=== PATIENT | male | born 1995 | race Caucasian/White ===

== ENCOUNTER 2017-03-08 10:31 | Emergency (ER) | payer OTHER ==
[2017-03-08] MEDS ORDERED: Ibuprofen TAB* 400 MG PO ONE (11:10)
--- NOTE | 2017-03-08 11:30 | ED ---
Lower Extremity - HPI Summary HPI Summary: Patient was hiking barefoot last night, which he does regularly, when he slipped and thinks his right fourth toe was caught in a root. He knew the toe was injured but was able to walk home. At home he cleaned the wound, applied Neosporin and wrapped it in tight clean gauze. This morning he went to [facility] where he was told he might lose the toe and need an amputation, and was referred to the ED. He denies a lot of pain, no fever, chills or drainage. His tetanus is up to date and he has not taken anything for pain. - History of Current Complaint Chief Complaint: EDExtremityLower Stated Complaint: TOE LAC RT FOOT Time Seen by Provider: 03/08/17 10:37 Hx Obtained From: Patient Mechanism Of Injury: Twisted Onset of Pain: Immediate Onset/Duration: Hours Severity Initially: Moderate Severity Currently: Moderate Pain Intensity: 6 Timing: Constant, Lasting Hours Location: Is Discrete @ - right 4th toe Character Of Pain: Aching Associated Signs And Symptoms: Positive: Bruising - mild Aggravating Factor(s): Movement Alleviating Factor(s): Rest Able to Bear Weight: Yes - Allergies/Home Medications Allergies/Adverse Reactions: Allergies Allergy/AdvReac Type Severity Reaction Status Date / Time No Known Allergies Allergy Verified 03/08/17 11:22 PMH/Surg Hx/FS Hx/Imm Hx Previously Healthy: Yes Infectious Disease History: No Infectious Disease History: Denies: Traveled Outside the [place] in Last 30 Days - Family History Known Family History: Positive: None - Social History Occupation: Employed Part-time Lives: With Family Alcohol Use: None Substance Use Type: Reports: None Smoking Status (MU): Never Smoked Tobacco Review of Systems Positive: Myalgia - right 4th toe skin avulsion Negative: Paresthesia, Numbness All Other Systems Reviewed And Are Negative: Yes Physical Exam Triage Information Reviewed: Yes Vital Signs On Initial Exam: Initial Vitals Temp Pulse Resp BP Pulse Ox 98.1 F 71 16 127/83 98 03/08/17 10:37 03/08/17 10:37 03/08/17 10:37 03/08/17 10:37 03/08/17 10:37 Vital Signs Reviewed: Yes Appearance: Positive: Well-Appearing, No Pain Distress, Thin Skin: Positive: Warm, Skin Color Reflects Adequate Perfusion, Dry, Tender - right 4th toe 1 cm skin avulsion to the distal pulp, Soft Head/Face: Positive: Normal Head/Face Inspection Eyes: Positive: EOMI, KELSIE, Conjunctiva Clear ENT: Positive: Hearing grossly normal Respiratory/Lung Sounds: Positive: Breath Sounds Present Cardiovascular: Positive: RRR Musculoskeletal: Positive: Limited @ - right 4th toe movement limited by pain, Pain @ - mildly TTP right 4th toe Neurological: Positive: Sensory/Motor Intact, Alert, Oriented to Person Place, Time, NV Bundle Intact Distally, Normal Gait Psychiatric: Positive: Affect/Mood Appropriate AVPU Assessment: Alert - [place] Coma Scale Coma Scale Total: 15 Diagnostics - Vital Signs Vital Signs Temp Pulse Resp BP Pulse Ox 03/08/17 10:37 98.1 F 71 16 127/83 98 - Laboratory Lab Statement: Any lab studies that have been ordered have been reviewed, and results considered in the medical decision making process. - Radiology No standard instances Xray Interpretation: No Acute Changes Radiology Interpretation Completed By: Radiologist Lower Extremity Course/Dx - Diagnoses Differential Diagnosis/HQI/PQRI: Positive: Arthritis, Bursitis, Cellulitis, Contusion, Infection, Puncture Wound, Sprain, Strain Provider Diagnoses: Contusion of fourth toe, right, Avulsion of skin of toe Discharge - Discharge Plan Condition: Stable Disposition: HOME Patient Education Materials: Skin Avulsion (ED) Referrals: [facility], [Primary Care Provider] - [facility]FERR[facility] [Outside] Additional Instructions: Please keep your wound clean, dry and intact while it continues to heal. Apply antibiotic ointment for the next 2-3 days and perform twice daily dressing changes. Take ibuprofen 600mg three times daily with meals for the next 3-5 days to decrease swelling and pain. Call the number provided to establish care with a primary care provider for follow-up care. Return to the emergency department if symptoms worsen.
--- NOTE | 2017-03-08 11:45 | RAD ---
HISTORY: Right fourth toe trauma COMPARISONS: None VIEWS: 3, Frontal, lateral, and oblique views of the fourth digit of the right foot FINDINGS: BONE DENSITY: Normal. BONES: There is no displaced fracture. JOINTS: There is no arthropathy. ALIGNMENT: There is no dislocation. SOFT TISSUES: Unremarkable. OTHER FINDINGS: None. IMPRESSION: NO ACUTE OSSEOUS INJURY. IF SYMPTOMS PERSIST, RECOMMEND REPEAT IMAGING.
[2017-03-08 12:20] VITALS: BP 121/67
== END 2017-03-08 12:20 | disposition home or self-care (01) ==
LOC: ED 10:31
DX: S90.121A Contusion of right lesser toe(s) without damage to nail, initial encounter (principal); W22.8XXA Striking against or struck by other objects, initial encounter; Y93.01 Activity, walking, marching and hiking; Y92.89 Other specified places as the place of occurrence of the external cause
CPT/HCPCS: 99282; A9270-GY

== ENCOUNTER 2017-06-18 13:27 | Emergency (ER) | payer OTHER ==
[2017-06-18] MEDS ORDERED: Ketorolac INJ* 30 MG/ML 1 ML VIAL IV PUSH ONE (15:06)
[2017-06-18] MEDS ORDERED: Ondansetron INJ* 2 MG/ML VIAL IV ONE (15:06)
[2017-06-18] MEDS ORDERED: NS 0.9% 1000 ML* 1,000 ML IV ONE (15:06)
--- NOTE | 2017-06-18 15:18 | ED ---
GI/ HPI - HPI Summary HPI Summary: 22M presents with right sided flank and abdominal pain today. He has a history of kidney stones and states that this feels the same. He admits to nausea, vomiting, and pain with urination. admits to frequency and urgency. no fevers, diarrhea or constipation. has had lithotripsy done for previous kidney stones. He states pain radiates to his testicular. Has not taken anything for pain. no medical history. he states pain has been fluctuating in intensity. currently 12/21. - History of Current Complaint Chief Complaint: EDFlankPain Time Seen by Provider: 06/18/17 15:05 Stated Complaint: POSS KIDNEY STONES Pain Intensity: 6 - Allergy/Home Medications Allergies/Adverse Reactions: Allergies Allergy/AdvReac Type Severity Reaction Status Date / Time No Known Allergies Allergy Verified 06/18/17 13:33 PMH/Surg Hx/FS Hx/Imm Hx Endocrine/Hematology History: Denies: Hx Anticoagulant Therapy History: Reports: Hx Kidney Stones Infectious Disease History: No Infectious Disease History: Denies: Traveled Outside the [place] in Last 30 Days - Family History Known Family History: Positive: None - Social History Alcohol Use: None Substance Use Type: Reports: None Smoking Status (MU): Never Smoked Tobacco Review of Systems Negative: Fever Negative: Chest Pain Negative: Shortness Of Breath Positive: Abdominal Pain, Vomiting, Nausea. Negative: Diarrhea Positive: dysuria, flank pain All Other Systems Reviewed And Are Negative: Yes Physical Exam Triage Information Reviewed: Yes Vital Signs On Initial Exam: Initial Vitals Temp Pulse Resp BP Pulse Ox 97.3 F 75 16 122/83 100 06/18/17 13:30 06/18/17 13:30 06/18/17 13:30 06/18/17 13:30 06/18/17 13:30 Vital Signs Reviewed: Yes Appearance: Positive: Well-Appearing Skin: Positive: Warm, Dry Head/Face: Positive: Normal Head/Face Inspection Eyes: Positive: Normal, Conjunctiva Clear Respiratory/Lung Sounds: Positive: Clear to Auscultation, Breath Sounds Present Cardiovascular: Positive: Normal, RRR Abdomen Description: Positive: Soft, CVA Tenderness (R), Other: - tendernss right side of abdomen Bowel Sounds: Positive: Present Musculoskeletal: Positive: Normal Neurological: Positive: Normal Psychiatric: Positive: Normal - [place] Coma Scale Coma Scale Total: 15 Diagnostics - Vital Signs Vital Signs Temp Pulse Resp BP Pulse Ox 06/18/17 13:30 97.3 F 75 16 122/83 100 - Laboratory Result Diagrams: 06/18/17 15:20 06/18/17 15:20 Lab Statement: Any lab studies that have been ordered have been reviewed, and results considered in the medical decision making process. - CT abd CT Interpretation: Positive (See Comments) - IMPRESSION: At the right ureterovesical junction there is a 7 mm calcification with mild right-sided hydroureter nephrosis. In addition there are bilateral nonobstructing renal calculi as described in the report body. CT Interpretation Completed By: Radiologist - Ultrasound No standard instances Ultrasound Interpretation: No Acute Changes Ultrasound Interpretation Completed By: ED Physician GIGU Course/Dx - Course Course Of Treatment: 22M presents with right sided flank and abdominal pain today. He has a history of kidney stones and states that this feels the same. He admits to nausea, vomiting, and pain with urination. admits to frequency and urgency. no fevers, diarrhea or constipation. has had lithotripsy done for previous kidney stones. He states pain radiates to his testicular. Has not taken anything for pain. no medical history. he states pain has been fluctuating in intensity. on exam CVA tenderness right. mild tenderness right side abdomen. u/a shows blood, +1wbc but with skin cells so wait for culture. CT shows 7mm stone. patient pain controlled with toradol. discussed with dr noel as have no urology coverage will send home to follow up outpatient with urology. patient understands and agrees with plan. - Diagnoses Differential Diagnoses - Male: Pyelonephritis, Ureteral Calculi, Urinary Tract Infection Provider Diagnoses: Kidney stone Discharge - Discharge Plan Condition: Good Disposition: HOME Prescriptions: Ondansetron ODT TAB* [Zofran 4 MG Odt TAB*] 4 mg PO Q6H PRN #15 tab.odt PRN Reason: Nausea Tamsulosin CAP* [Flomax CAP*] 0.4 mg PO DAILY #10 cap oxyCODONE/Acetamin 5/325 MG* [Percocet 5/325 TAB*] 1 tab PO Q6H PRN #16 tab MDD 4 PRN Reason: Pain Patient Education Materials: Kidney Stones (ED) Referrals: Non Staff,Doctor [Primary Care Provider] - Jelani Gardner MD [Medical Doctor] - Additional Instructions: Take ibuprofen every 6 hours and narcotic as needed every 6 hours Take Zofran every 6 hours for nausea as needed Take Flomax daily starting tomorrow, first dose given in ED until stone expelled , make sure stand up slowly Follow up with urology, call office tomorrow for appointment Return to ED if unable to manage pain at home, develop fever, or any new or worsening symptoms
[2017-06-18 15:31] LABS: Hematocrit 45 % (42-52); Hemoglobin 15.7 g/dl (14.0-18.0); Mean Corpuscular HGB Conc 35 g/dl (31-36); Mean Corpuscular Hemoglobin 30 pg (27-31); Mean Corpuscular Volume 86 fL (80-94); Mean Platelet Volume 8 um3 (7.4-10.4); Red Blood Count 5.26 10^6/ul (4.0-5.4); Red Cell Distribution Width 13 % (10.5-15); White Blood Count 11.8 10^3/ul (3.5-10.8)
[2017-06-18 15:50] LABS: Urine Bacteria Absent (Absent); Urine Bilirubin Negative (Negative); Urine Glucose Negative (Negative); Urine Nitrite Negative (Negative)
[2017-06-18 16:14] LABS: ALT 13 U/L (7-52); Albumin 5.1 g/dL (3.2-5.2); Alkaline Phosphatase 66 U/L (34-104); BUN/Creatinine Ratio 14.6 (8-20); Blood Urea Nitrogen 15 mg/dL (6-24); CO2 Carbon Dioxide 28 mmol/L (22-32); Calcium 9.9 mg/dL (8.6-10.3); Chloride 102 mmol/L (101-111); EGFR African American 118.4 (>60); EGFR Non-African American 92.1 (>60); Globulin 2.8 g/dL (2-4); Glucose 85 mg/dL (70-100); Sodium 138 mmol/L (133-145); Total Protein 7.9 g/dL (6.4-8.9)
[2017-06-18 16:16] LABS: Anion Gap 8 mmol/L (2-11)
--- NOTE | 2017-06-18 16:24 | RAD ---
CLINICAL HISTORY: Right-sided flank and abdominal pain COMPARISON: None TECHNIQUE: Noncontrast CT examination of the abdomen and pelvis from the lung bases through the initial tuberosities. FINDINGS: VISUALIZED LUNG BASES: The visualized lung bases are grossly clear. There is no pleural effusion. ABDOMEN AND PELVIS: Evaluation of the solid organs and vasculature is limited without intravenous contrast. The liver, spleen, pancreas and adrenal glands are grossly normal in appearance. The gallbladder is normal. At the mid-level left renal collecting system (image 48 coronal images) there is a punctate calcification. At the right lower pole there is a 3 mm calcification. There is a mild degree of right-sided hydronephrosis. At the right ureterovesical junction (sagittal image 52 and axial image 135) there is a 7 mm calcification. The urinary bladder is mostly decompressed. Evaluation of the gastrointestinal tract is limited without oral contrast. The small and large bowel are not distended.The patient's normal appendix is identified in the right lower quadrant with gas in the lumen (coronal image 32). There is no gross retroperitoneal or mesenteric lymphadenopathy. The pelvic viscera is normal in appearance. The abdominal aorta and iliac arteries are normal in course and diameter. There are no sinister bone lesions. IMPRESSION: At the right ureterovesical junction there is a 7 mm calcification with mild right-sided hydroureter nephrosis. In addition there are bilateral nonobstructing renal calculi as described in the report body.
--- NOTE | 2017-06-18 16:28 | RAD ---
INDICATION: Right testicular pain. COMPARISON: There are no prior studies available for comparison. TECHNIQUE: Multiple real-time images of the testicles were obtained including color Doppler images and Doppler tracings. FINDINGS: The testicles are normal in size, shape and echogenicity. The right testicle measured 4.0 x 2.7 x 3.1 cm and the left testicle measured 3.9 x 2.4 x 3.1 cm. No intratesticular mass is seen. There is symmetric vascular flow within both testicles. The epididymides appear to be within normal limits. There are small bilateral hydroceles. IMPRESSION: NO EVIDENCE FOR TESTICULAR TORSION OR EPIDIDYMITIS.
[2017-06-18 16:35] LABS: Lipase 22 U/L (11.0-82.0)
[2017-06-18 17:26] VITALS: BP 142/70
[2017-06-18] MEDS ORDERED: Tamsulosin CAP* 0.4 MG PO ONE (17:27)
== END 2017-06-18 17:35 | disposition home or self-care (01) ==
LOC: ED 13:27
DX: N20.0 Calculus of kidney (principal); R10.84 Generalized abdominal pain; R11.2 Nausea with vomiting, unspecified
CPT/HCPCS: 36415; 74176; 76870; 80053; 81003; 81015; 83690; 85025; 86141; 96374; 96375; 99282; J1885; J2405